=== PATIENT | female | born 1965 | race Caucasian/White ===

== ENCOUNTER → 2023-04-30 | Outpatient (CLI) | payer OTHER, MEDICARE, SELFPAY ==
--- NOTE | 2023-04-30 12:56 | US_ITS ---
STUDY: RENAL ULTRASOUND - COMPLETE REASON FOR EXAM: Female, 57 years old. NEUROGENIC BLADDER URINARY RENTENTION TECHNIQUE: Ultrasound evaluation of the kidneys was performed with real-time and static seaman-scale imaging. COMPARISON: None. FINDINGS: RIGHT KIDNEY: Normal location of the right kidney, which is normal in size. The right kidney measures 9.9 cm x 4.3 cm x 4.1 cm. There is a normal cortex of the right kidney. The renal cortex measures 1.1 cm. There is no right renal mass or cyst. There are no right renal calculi. There is no right hydronephrosis. DISTAL RIGHT URETER: There is non-visualization of the distal right ureter. There is no demonstrated right ureterovesical junction calculus. There is no demonstrated right ureteral jet. LEFT KIDNEY: Normal location of the left kidney, which is normal in size. The left kidney measures 10.1 cm x 5.4 cm x 4 cm. There is a normal cortex of the left kidney. The renal cortex measures 1.1 cm. There is no left renal mass or cyst. There are no left renal calculi. There is no left hydronephrosis. DISTAL LEFT URETER: There is non-visualization of the distal left ureter. There is no demonstrated left ureterovesical junction calculus. There is no demonstrated left ureteral jet. BLADDER: The bladder is empty due to a suprapubic catheter. US/Kidney and Bladder IMPRESSION: Normal ultrasound of the kidneys. Electronically Signed: Alden Boyce MD at 14:01 EDT ,
== END | disposition home or self-care (01) ==
LOC: US 12:55
PROVIDERS: PCP Family Medicine; Referring Provider Urology; Visit Provider Urology
DX: N31.9 Neuromuscular dysfunction of bladder, unspecified (principal); R33.9 Retention of urine, unspecified
CPT/HCPCS: 76770

== ENCOUNTER → 2024-03-15 | Outpatient (CLI) | payer OTHER, MEDICARE, SELFPAY ==
--- NOTE | 2024-03-15 16:26 | CT_ITS ---
STUDY: CT ABDOMEN AND PELVIS WITH AND WITHOUT CONTRAST REASON FOR EXAM: Female, 58 years old. DISPLACED SPC RADIATION DOSAGE (If Supplied By Facility): CTDIvol = ( 25.33 ) mGy, DLP = ( 4507.71 ) mGycm TECHNIQUE: Transaxial images were obtained from the dome of the diaphragm to the symphysis pubis without oral contrast. IV 100mL Isovue-370 was administered. Sagittal and coronal images were reconstructed. Individualized dose optimization techniques were used for this CT. COMPARISON: None. FINDINGS: The visualized lung bases are unremarkable. The visualized portions of the heart are within normal limits. Multiple hepatic cysts. There is a solitary gallstone. Normal spleen. Normal pancreas. Normal bilateral adrenal glands. Tiny (1 to 2 mm) nonobstructing stone lower pole right kidney. 2 mm nonobstructing stone upper pole left kidney. No hydronephrosis, ureteral stone, ureteral dilatation. There is a small hiatal hernia. Normal small intestine. Normal colon. There is non-visualization of the appendix. Normal abdominal aorta. Normal inferior vena cava. Normal retroperitoneum. Suprapubic catheter in the dome of the bladder. Status post bilateral tubal ligation. There is a small umbilical hernia containing fat. Mild levoscoliosis lumbar spine. CT/CT Abd/Pelvis W/WO Contrast IMPRESSION: 1. Suprapubic catheter in the dome of the bladder. 2. Bilateral small nonobstructing renal stones. 3. Cholelithiasis. 4. Multiple hepatic cysts. 5. Small hiatal hernia. Electronically Signed: Reyes Hand MD at 20:31 EDT ,
== END | disposition home or self-care (01) ==
LOC: CT 16:24
PROVIDERS: PCP Family Medicine; Referring Provider Urology; Visit Provider Urology
DX: T83.028A Displacement of other urinary catheter, initial encounter (principal)
CPT/HCPCS: 74178; Q9967

== ENCOUNTER → 2024-06-02 | Outpatient (CLI) | payer OTHER, MEDICARE, SELFPAY ==
--- NOTE | 2024-06-02 13:32 | US_ITS ---
STUDY: ULTRASOUND OF THE FEMALE PELVIS - COMPLETE REASON FOR EXAM: Female, 58 years old. ABNORMAL VAG BLEEDING LMP: Patient is postmenopausal. TECHNIQUE: Transabdominal TECHNICAL QUALITY: Limited. Suprapubic catheter is present. COMPARISON: None. FINDINGS: The uterus is anteverted and is in a midline position. The uterus measures 6.1 cm x 4.3 cm x 3.6 cm. Normal uterine cervix. The endometrium is mildly thickened and measures 4.5 mm in thickness, and is hyperechoic. There is no demonstrated endometrial mass. There is no demonstrated myometrial mass. I.U.D. - The patient does not have an I.U.D. The right ovary is non-visualized. The left ovary is non-visualized. There is no fluid in the cul-de-sac. US/Pelvic (Non ) IMPRESSION: Limited evaluation. Mildly thickened endometrium. Electronically Signed: Alden Boyce MD at 15:27 EDT ,
== END | disposition home or self-care (01) ==
PROVIDERS: PCP Family Medicine; Referring Provider Urology; Visit Provider Urology
DX: N93.9 Abnormal uterine and vaginal bleeding, unspecified (principal); Z78.0 Asymptomatic menopausal state
CPT/HCPCS: 76856

== ENCOUNTER → 2024-08-11 | Outpatient (CLI) | payer OTHER, MEDICARE, SELFPAY ==
[2024-08-17 19:07] LABS: HPV APTIMA, High Risk Negative (Negative)
== END | disposition home or self-care (01) ==
LOC: LABSPEC 14:02
PROVIDERS: PCP Family Medicine; Referring Provider Obstetrics & Gynecology; Visit Provider Obstetrics & Gynecology
DX: Z12.4 Encounter for screening for malignant neoplasm of cervix (principal)
CPT/HCPCS: 87624; 88175; G0145

== ENCOUNTER 2024-10-10 15:54 | Outpatient (CLI) | payer OTHER, MEDICARE, SELFPAY ==
--- NOTE | 2024-10-06 10:59 | EKG12_ITS ---
Test Reason : PREOP Blood Pressure : */* mmHG Vent. Rate : 72 BPM Atrial Rate : 72 BPM P-R Int : 128 ms QRS Dur : 76 ms QT Int : 398 ms P-R-T Axes : 35 -12 7 degrees QTcB Int : 435 ms Normal sinus rhythm Normal ECG Confirmed by Kenji Lyons ([id number]), videotape editor TEO CASTRO ([id number]) on 10/09/2024 9:08:43 AM Referred By: Lor Felix Confirmed By: Kenji Lyons
[2024-10-06 11:24] LABS: Hematocrit 45.6 % (37-47); Hemoglobin 14.8 g/dL (12.0-15.0); Mean Corp Hgb Conc 32.5 g/dL (32-36); Mean Corpuscular Hgb 27.3 pg (27.0-32.0); Mean Corpuscular Volume 84.1 fL (81-99); Mean Platelet Vol. 9.5 fl (6.2-12.0); Platelet Count 209 K/mm3 (150-450); RBC Distribution Width CV 13.1 % (11.6-14.6); RBC Distribution Width SD 40.2 fl (35.1-43.9); Red Blood Count 5.42 M/mm3 (4.2-5.4); White Blood Count 5.8 K/mm3 (4.4-11.0)
[2024-10-06 11:58] LABS: ALB/GLOB Ratio 1.2 RATIO (0.9-2.4); AST(SGOT) 17 U/L (15-37); Alanine Aminotransfer ALT/SGPT 33 U/L (13-56); Albumin, Serum 3.5 g/dL (3.2-5.0); Alkaline Phosphatase 101 U/L (45-117); Anion Gap 1 (5-15); BUN 13 mg/dL (7-18); BUN/Creat Ratio 16.6 RATIO (10-20); Calcium,Total 9.4 mg/dL (8.5-10.1); Chloride 107 mmol/L (98-107); Creatinine, Serum 0.78 mg/dL (0.55-1.02); EST Glomerular Filtration Rate 80 mL/min (>60); Est Glom Filt Rate - Afr Amer 97 mL/min (>60); Globulin 2.9 g/dL (2.2-4.2); Glucose 130 mg/dL (74-106); Potassium 3.9 mmol/L (3.5-5.1); Protein, Total 6.4 g/dL (6.4-8.2); Sodium Level 140 mmol/L (136-145)
[2024-10-10] VITALS (9 sets, daily range): BP systolic 151–173; BP diastolic 69–90; PULSE 59–75; RESP 16–18; TEMP 36.8–37.1; O2SAT 96–99; BMI 34.5
--- NOTE | 2024-10-10 12:34 | PCM.HP.BLA ---
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 Required: No Is patient in pain?: No Allergies No Known Allergies Allergy (Verified 10/06/24 11:17) Medications ?Medication ?Instructions ?Recorded ?Confirmed ?Type atorvastatin 20 mg tablet 20 mg PO QDAY 08/11/24 10/06/24 History baclofen 10 mg tablet 10 mg PO TID 08/11/24 10/06/24 History escitalopram oxalate 20 mg tablet 20 mg PO QDAY 08/11/24 10/06/24 History oxybutynin chloride 5 mg tablet 5 mg PO BID 08/11/24 10/06/24 History calcium carbonate 500 mg PO QDAY 10/06/24 10/06/24 History omeprazole 20 mg capsule,delayed 20 mg PO QDAY PRN 10/06/24 10/06/24 History release potassium chloride 10 mEq 10 meq PO BID 10/06/24 10/06/24 History tablet,extended release Post menopausal: No Patient : No : No PFSH Medical History Wears glasses Post-menopausal Uses wheelchair DVT (deep venous thrombosis) Multiple sclerosis Gastric reflux Non-smoker History of edema History of echocardiogram Depression Leg muscle spasm Hyperlipidemia Surgical History Suprapubic catheter S/P tubal ligation Family History Mother Thyroid disorderFather Thyroid disorder HypertensionOther Colon cancer Heart disease Social History Smoking Status: Never smoker alcohol intake: never substance use type: does not use what type of physical activity do you participate in: none seatbelt use: always do you feel safe at home: Yes additional social history: - [facility] D&C Details: ANGELIQUE HAAS is a 59 year old who presents for a preop exam about a scheduled D&C. The procedure is scheduled for persistent perimenopausal bleeding after ablation. She has severe MS and can not tolerate a pelvic exam in the office. The purpose of the D&C is to hopefully alleviate post ablation syndrome, but to also sample the endometrium. Ultrasound showed the following: FINDINGS: The uterus is anteverted and is in a midline position. The uterus measures 6.1 cm x 4.3 cm x 3.6 cm. Normal uterine cervix. The endometrium is mildly thickened and measures 4.5 mm in thickness, and is hyperechoic. There is no demonstrated endometrial mass. There is no demonstrated myometrial mass. I.U.D. - The patient does not have an I.U.D. The right ovary is non-visualized. The left ovary is non-visualized. There is no fluid in the cul-de-sac. US/Pelvic (Non ) IMPRESSION: Limited evaluation. Mildly thickened endometrium. History 2 Elective abortions Hx Para 2 Spontaneous abortions Hx # Term Pregnancies Ectopic pregnancies Hx # Pregnancies Multiple births # of living children Past Pregnancies Del. Date Name GA/Weeks Outcome Route Bth Weight Infant Gen Labor Lgth Anesthesia Del Locatn Provider FOB Unknown Radha Unknown Morteza Coding Level of Care Code Off vis,est,level 4 Diagnoses Endometrial thickening on ultrasound R93.89 History of endometrial ablation Z98.890 Postmenopausal bleeding N95.0 Multiple sclerosis G35 Assessment and Plan Assessment and Plan (1) Endometrial thickening on ultrasound: Status: Acute (2) History of endometrial ablation: Status: Acute (3) Postmenopausal bleeding: Status: Acute (4) Multiple sclerosis: Status: Chronic Plan: After discussing the patient's diagnosis and treatment plan options, patient wishes to proceed with surgical management. I have discussed with the patient the risks, benefits, and alternatives of the procedure which include but are not limited to risks of anesthesia, bleeding, infection, possible damage to bowel, bladder, or surrounding vasculature which could lead to additional surgery to evaluate any complications. Patient agrees to procedure and wishes to proceed. ACOG/uptodate references given for additional information regarding procedure. plan is for hysteroscopy dilation and curettage.
--- NOTE | 2024-10-10 13:09 | PRE.ANES_ITS ---
ASA Classification* ASA Classification ASA Classification: 3 Assessment & Plan Anesthesia* Anesthesia Assessment Anesthesia Assessment: Discussed sedation and/or anesthesia options, risks, benefits, and alternatives with patient/parents/legal guardian/POA. Questions invited. The patient/parents/legal guardian/POA seems to understand and agrees to proceed with anesthesia plan. Reviewed the physical assessment, medical history, allergy history and patient home medications list prior to surgery/procedure/anesthetic and documented any changes. Performed airway and anesthesia risk assessments. Anesthesia Type Anesthesia Type: MAC Anesthesia Focused Assessment* Temperature: 98.2 F Pulse Rate: 59 Blood Pressure: 170/86 Respiratory Rate: 18 Pulse Ox: 99 Airway Assessment Mouth opens: >3 cm Mallampati Score: II Focused Labs Anesthesia Preop lab: CBC WBC 5.8 K/mm3 (4.4-11.0) 10/06/24 10:52 RBC 5.42 M/mm3 (4.2-5.4) H 10/06/24 10:52 Hgb 14.8 g/dL (12.0-15.0) 10/06/24 10:52 Hct 45.6 % (37-47) 10/06/24 10:52 Plt Count 209 K/mm3 (150-450) 10/06/24 10:52 CHEMISTRY Potassium 3.9 mmol/L (3.5-5.1) 10/06/24 10:52 Sodium 140 mmol/L (136-145) 10/06/24 10:52 BUN 13 mg/dL (7-18) 10/06/24 10:52 Creatinine 0.78 mg/dL (0.55-1.02) 10/06/24 10:52 Glucose 130 mg/dL (74-106) H 10/06/24 10:52 COAG Pre-Assessment Diagnosis/Proposed Procedure Planned Operative Procedure(s): HYSTEROSCOPY D&C Anesthesia History Anesthesia History - import and export clerk: Anesthesia History - import and export clerk Hx Hospitalization No 10/03/24 13:07 Any Problems With Anesthesia No 10/03/24 13:07 Cholinesterase deficiency No 10/03/24 13:07 You/Your Family Experience No 10/03/24 13:07 fever (hyperthermia) with Relationship Recent Exposure to Contagious No 10/10/24 12:46 Disease Does patient have nerve No 10/03/24 13:07 stimulator Patient instructed to have device shut off --Does patient have Pacemaker No 10/10/24 12:46 or ICD? When Was Last Pacemaker Check QUESTION #4 FULL TEXT: You/Your Family Experience fever (hyperthermia) with Anesthesia Last Oral Intake Last Oral intake: Last Oral Intake NPO since 22:00 10/10/24 12:46 Meds taken in AM with sips of Yes 10/10/24 12:46 water? Meds patient instructed to see med rec 10/10/24 12:46 take am of surgery PONV PONV - import and export clerk: PONV - import and export clerk Female Yes 10/03/24 13:07 HX of Motion Sickness No 10/03/24 13:07 HX of N/V After Surgery No 10/03/24 13:07 Non-Smoker Yes 10/03/24 13:07 Duration of Surgery greater No 10/03/24 13:07 than 60 minutes Number of Risk Factors 2 10/03/24 13:07 PONV Score Moderate Risk 10/03/24 13:07 Height & Weight Height & Weight: Anesthesia: Height & Weight Height 5 ft 3 in 10/10/24 12:46 Weight: 88.451 kg 10/10/24 12:46 Body Mass Index (BMI) 34.5 10/10/24 12:46 Respiratory Assessment Respiratory Assessment - import and export clerk: Respiratory Tract Infection Hx - import and export clerk Hx Respiratory Tract Infection No 10/03/24 13:07 STOP Sleep Apnea STOP Sleep Apnea - import and export clerk: STOP Sleep Apnea - import and export clerk Hx Hypertension No 10/03/24 13:07 Hx Sleep Apnea No 10/03/24 13:07 CPAP BIPAP Do you snore loudly (louder No 10/03/24 13:07 than talking or can be heard Do you often feel tired/ No 10/03/24 13:07 fatigued/ sleepy during daytime? Has anyone observed you stop No 10/03/24 13:07 breathing during sleep? STOP Results Negative 10/03/24 13:07 QUESTION #5 FULL TEXT : Do you snore loudly (louder than talking or can be heard through closed doors)? Tobacco Use History Tobacco Use History - import and export clerk: Tobacco Use History - import and export clerk Tobacco Use Smoking Status Never smoker 10/03/24 13:07 Hx Tobacco Use No 10/03/24 13:07 Years Smoking Packs Smoked per Day Smoking Cessation Date was within the last 15 years Hx Smoking Cessation Date Hx Smoking Cessation Counseling Hematologic Medial History Hematologic Hx - import and export clerk: Hematologic Medical Hx - transition lead Hx of Blood Transfusion No 10/03/24 13:07 Hx of Transfusion in last 3 No 10/03/24 13:07 Months Date of Last Transfusion (if within last 3 months) Ever experience any problems No 10/03/24 13:07 with transfusion(s)? Specify any problems Hx of Preganancy in last 3 No 10/03/24 13:07 Months Nurse Filling Out Transfusion DSCHRIBER 10/03/24 13:07 & Questions: Date: 10/03/24 10/03/24 13:07 Time: 13:09 10/03/24 13:07 Patient unable to answer at this time (ie. confused, unrespo /Reproduction History /Reproductive History - import and export clerk: /Reproductive Hx- import and export clerk Hx Now No 10/03/24 13:07 Gestational Age (in weeks): EDC: Hx Hx Para Hx Section SAB No 10/06/24 11:18 PFSH Medical History Wears glasses Post-menopausal Uses wheelchair DVT (deep venous thrombosis) Multiple sclerosis Gastric reflux Non-smoker History of edema History of echocardiogram Depression Leg muscle spasm Hyperlipidemia Home Medications ?Medication ?Instructions ?Recorded ?Last Taken ?Type atorvastatin 20 mg tablet 20 mg PO QDAY 08/11/24 Unknown History baclofen 10 mg tablet 10 mg PO TID 08/11/24 10/10/24 08:45 History escitalopram oxalate 20 mg tablet 20 mg PO QDAY 08/11/24 Unknown History oxybutynin chloride 5 mg tablet 5 mg PO BID 08/11/24 10/10/24 08:45 History calcium carbonate 500 mg PO QDAY 10/06/24 Unknown History potassium chloride 10 mEq 10 meq PO BID 10/06/24 10/10/24 08:45 History tablet,extended release dalfampridine 10 mg 10 mg PO BID 10/10/24 12 08:45 History tablet,extended release,12 hr (Ampyra) Allergy/AdvReac Type Severity Reaction Status Date / Time No Known Allergies Allergy Verified 10/10/24 12:42 Family History Mother Thyroid disorder Father Thyroid disorder Hypertension Other Colon cancer Heart disease Surgical History Suprapubic catheter S/P tubal ligation Social History Smoking Status: Never smoker alcohol intake: never substance use type: does not use what type of physical activity do you participate in: none seatbelt use: always do you feel safe at home: Yes additional social history: - [facility] Review of Systems (Anesthesia) ROS Narrative System reviewed and no additional complaints, except as documented.
--- NOTE | 2024-10-10 14:08 | PCM.DC ---
Discharge Instructions Diet Discharge Diet: No restrictions DC O2, CPAP, BIPAP needs Additional Home O2 Discharge instructions: No Dressing / Incision Discharge Activity: Return to Normal Activity, May Shower and May Take a Tub Bath (after 1 week) May resume sexual activity in: 1-2 weeks Weight Bearing Status: Weight bearing as tolerated Lifting Restrictions: none Dressing / Incision Call your doctor if you observe: Fever of 101 or Higher, Using more than 1 pad per hour, Shortness of breath and Uncontrolled pain Follow Up Care Please Follow Up With: Lor Felix DO When: Call [phone] to schedule appointment. Test Results: Test results from this visit will be discussed in further detail at your follow-up appointment, if applicable. Discharge Plan Admission Primary Reason for Your Visit: hysteroscopy dilation and curettage Attending Provider: Lor Felix Primary Care Provider: Arnaldo Trevizo Instructions Additional Instructions / Restrictions: Take Ibuprofen (600 mg every 6 hours) or Tylenol (500 mg every 6 hours) as needed for cramping. Print Language: Citizen Of [place] Discharge Orders/Prescriptions Prescriptions: No Action atorvastatin 20 mg tablet 20 mg PO QDAY oxybutynin chloride 5 mg tablet 5 mg PO BID baclofen 10 mg tablet 10 mg PO TID escitalopram oxalate 20 mg tablet 20 mg PO QDAY potassium chloride 10 mEq tablet extended release 10 meq PO BID calcium carbonate 500 mg calcium (1,250 mg) tablet 500 mg PO QDAY dalfampridine [Ampyra] 10 mg tablet extended release 12 hr 10 mg PO BID Referrals / Follow Up: Arnaldo Treivzo MD [Primary Care Provider] - Disposition Disposition (needs filled in before D/C Order can be placed): Home, Self Care
[2024-10-10] MEDS: Lidocaine 1% (20 ml mdv) 20 ML Vial (14:48)
--- NOTE | 2024-10-10 15:02 | PCM.POST.ANE ---
Anesthesia: Postop Eval I Current Vital Signs Temperature: 98.6 F Pulse Rate: 74 Blood Pressure: 162/90 Respiratory Rate: 16 Pulse Ox: 97 Oxygen Delivery Method: Room Air Assessment Airway patent: Yes Spontaneous unlabored respirations: Yes Mental status: Asleep nausea: No Vomiting: No Anesthesia Complication: No Fluid Hydration Crystalloid volume administer (ml): 10 Total IV fluid infused: 10 Progress Note Anesthesia document: Postop Eval 1 completed: Yes
--- NOTE | 2024-10-10 15:09 | OP.PCM_ITS ---
Problems Associated Problem List Diagnoses (1) Postmenopausal bleeding: (2) Endometrial thickening on ultrasound: (3) History of endometrial ablation: Multi Select Codes Urinary/Genital Urinary/Genital CPT Codes: 57979 MOHIT Operative Report (Standard) Operative Information Date of Procedure: 10/10/24 Pre-Operative Diagnosis: postmenopausal bleeding, thickened endometrium Post-Operative Diagnosis: postmenopausal bleeding, thickened endometrium, stenotic cervix. Surgery/Procedure Performed: Attempted hysteroscopy., Pap and exam under anesthesia supervisor pumping station: No Type of Anesthesia: Local MAC RN Documented Start/Stop Times: Operation Date: 10/10/24 13:50 Case Time Into Pre-Op 10/10/24 12:14 Out of Pre-Op 10/10/24 14:15 Anesthesia Start 10/10/24 14:18 Into Room 10/10/24 14:18 Procedure Start 10/10/24 14:36 Procedure End 10/10/24 14:52 Anesthesia End 10/10/24 14:56 Out of Room 10/10/24 14:56 Procedure Start Time: 14:36 Procedure Stop Time: 14:52 Select all DRAINS/GRAFTS/IMPLANTS that apply: None Estimated Blood Loss: 10cc Specimen collected: Yes Description of specimen(s) removed: pap Description of surgery: Patient was prepped and draped in a normal sterile fashion under MAC anesthesia. A bivalve speculum was placed in the vagina due to long and narrow vaginal perales. A pap was first collected and the anterior lip of the cervix was grasped with a single-tooth tenaculum. A paracervical block was placed with 1% lidocaine. Dilation of the cervix was attempted, however resistance was met despite use of the smallest dilators and also attempt made with a long Carmen forceps device to spread the cervical os open. The fluid from the hysteroscope was used as the hysteroscope was brought to the cervical os. Hydrodissection was attempted, however only a tonawanda was created. There was then a fear of uterine perforation and the procedure was aborted after multiple attempts to dilate. All instruments were removed from the vagina and excellent hemostasis was noted. Patient was awoken and taken to recovery in stable condition. Surgical Findings: stenotic cervix. 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 Complications Complications: No Admit VTE Documentation VTE Present on Admission: No VTE Mechan Device Prophylaxis: SCD's VTE Pharm Prophylaxis ordered?: No
[2024-10-10] MEDS: oxyCODONE 5 MG Tablet PO (15:43)
--- NOTE | 2024-10-10 16:52 | POSTOPAN2_ITS ---
Anesthesia Postop Eval I Sum Postop Eval Completion status Anesthesia document: Postop Eval 1 completed: Yes Anesthesia Postop Eval I Summary Anesthesia Postop Eval I Summary: Anesthesia Postop Eval I: Assessment Summary Airway patent Yes 10/10/24 15:02 GUNNER [email or web address] Spontaneous unlabored Yes 10/10/24 15:02 GUNNER [email or web address].MARIO respirations Mental status Asleep 10/10/24 15:02 GUNNER [email or web address] nausea No 10/10/24 15:02 GUNNER MATE.[email or web address] Vomiting No 10/10/24 15:02 GUNNER MATE.PORFIRIOOBRola Anesthesia Postop Eval I: Fluid Summary Crystalloid volume administer 10 10/10/24 15:02 GUNNER [email or web address] (ml) Colloids volume administered ( ml) Blood Product volume administered (ml) Total IV fluid infused 10 10/10/24 15:02 GUNNER MATE.[email or web address] Anesthesia Postop Eval I: Summary Notes Anesthesia Complication No 10/10/24 15:02 GUNNER MATE.MARIO Anesthesia Complication Comment: Post-operative progress note Anesthesia: Postop Eval II Evaluation Mental status: Awake and Calm Pain Level: 1 nausea: No Vomiting: No Complications Anesthesia Complication: No
--- NOTE | 2024-10-10 16:52 | PCM.POSTANE2 ---
Anesthesia Postop Eval I Sum Postop Eval Completion status Anesthesia document: Postop Eval 1 completed: Yes Anesthesia Postop Eval I Summary Anesthesia Postop Eval I Summary: Anesthesia Postop Eval I: Assessment Summary Airway patent Yes 10/10/24 15:02 RFID [email or web address] Spontaneous unlabored Yes 10/10/24 15:02 RFID [email or web address] respirations Mental status Asleep 10/10/24 15:02 RFID [email or web address] nausea No 10/10/24 15:02 RFID [email or web address] Vomiting No 10/10/24 15:02 RFID [email or web address].[email or web address] Anesthesia Postop Eval I: Fluid Summary Crystalloid volume administer 10 10/10/24 15:02 RFID [email or web address] (ml) Colloids volume administered ( ml) Blood Product volume administered (ml) Total IV fluid infused 10 10/10/24 15:02 RFID [email or web address] Anesthesia Postop Eval I: Summary Notes Anesthesia Complication No 10/10/24 15:02 RFID [email or web address] Anesthesia Complication Comment: Post-operative progress note Anesthesia: Postop Eval II Evaluation Mental status: Awake and Calm Pain Level: 1 nausea: No Vomiting: No Complications Anesthesia Complication: No
[2024-10-19 10:07] LABS: HPV APTIMA, High Risk Negative (Negative)
== END 2024-10-10 17:18 | disposition home or self-care (01) ==
LOC: SDC 15:54 → AC 15:54
PROVIDERS: PCP Family Medicine; Referring Provider Obstetrics & Gynecology; Visit Provider Obstetrics & Gynecology
PROC: 0UDB8ZZ Extraction of Endometrium, Via Natural or Artificial Opening Endoscopic (ICD-10-PCS; CPT 58558; principal; 2024-10-10 13:40)
DX: N88.2 Stricture and stenosis of cervix uteri (principal); G35 Multiple sclerosis; R93.89 Abnormal findings on diagnostic imaging of other specified body structures; Z86.718 Personal history of other venous thrombosis and embolism; E78.5 Hyperlipidemia, unspecified; Z98.51 Tubal ligation status; N95.0 Postmenopausal bleeding; Z98.890 Other specified postprocedural states; K21.9 Gastro-esophageal reflux disease without esophagitis
CPT/HCPCS: 57410; 00940; 36415; 80053; 85027; 86850; 86900; 86901; 87624; 88175; 93005; G0145; J2405

== ENCOUNTER 2025-02-16 05:46 | Day surgery (SDC) | payer OTHER, MEDICARE, SELFPAY ==
[2025-02-16] VITALS (9 sets, daily range): BP systolic 112–157; BP diastolic 69–127; PULSE 71–86; RESP 16; TEMP 36.1–36.6; O2SAT 97–100; BMI 33.6
--- NOTE | 2025-02-16 06:48 | PRE.ANES_ITS ---
ASA Classification* ASA Classification ASA Classification: 3 Assessment & Plan Anesthesia* Anesthesia Assessment Anesthesia Assessment: Discussed sedation and/or anesthesia options, risks, benefits, and alternatives with patient/parents/legal guardian/POA. Questions invited. The patient/parents/legal guardian/POA seems to understand and agrees to proceed with anesthesia plan. Reviewed the physical assessment, medical history, allergy history and patient home medications list prior to surgery/procedure/anesthetic and documented any changes. Performed airway and anesthesia risk assessments. Anesthesia Type Anesthesia Type: MAC (GA bkup. patient has hx MS) Anesthesia Focused Assessment* Temperature: 97.1 F Pulse Rate: 71 Blood Pressure: 157/72 Respiratory Rate: 16 Pulse Ox: 100 Airway Assessment Mouth opens: >3 cm Mallampati Score: II Focused Labs Anesthesia Preop lab: CBC WBC 5.8 K/mm3 (4.4-11.0) 10/06/24 10:52 10/06/24 RBC 5.42 M/mm3 (4.2-5.4) H 10/06/24 10:52 10/06/24 Hgb 14.8 g/dL (12.0-15.0) 10/06/24 10:52 10/06/24 Hct 45.6 % (37-47) 10/06/24 10:52 10/06/24 Plt Count 209 K/mm3 (150-450) 10/06/24 10:52 10/06/24 CHEMISTRY Potassium 3.9 mmol/L (3.5-5.1) 10/06/24 10:52 10/06/24 Sodium 140 mmol/L (136-145) 10/06/24 10:52 10/06/24 BUN 13 mg/dL (7-18) 10/06/24 10:52 10/06/24 Creatinine 0.78 mg/dL (0.55-1.02) 10/06/24 10:52 10/06/24 Glucose 130 mg/dL (74-106) H 10/06/24 10:52 10/06/24 COAG Pre-Assessment Diagnosis/Proposed Procedure Planned Operative Procedure(s): CYSTO SUPRAPUBIC CATH Anesthesia History 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 When Was Last Pacemaker Check QUESTION #4 FULL TEXT: You/Your Family Experience fever (hyperthermia) with Anesthesia Last Oral Intake Last Oral intake: Last Oral Intake NPO since 00:00 02/16/25 06:22 Meds taken in AM with sips of No 02/16/25 06:22 water? Meds patient instructed to take am of surgery PONV PONV - brush loader and handle attacher: PONV - brush loader and handle attacher Female Yes 02/13/25 15:15 HX of Motion Sickness No 02/13/25 15:15 HX of N/V After Surgery No 02/13/25 15:15 Non-Smoker Yes 02/13/25 15:15 Duration of Surgery greater Yes 02/13/25 15:15 than 60 minutes Number of Risk Factors 3 02/13/25 15:15 PONV Score Moderate Risk 02/13/25 15:15 Height & Weight Height & Weight: Anesthesia: Height & Weight Height 5 ft 3 in 02/16/25 06:22 Weight: 86.183 kg 02/16/25 06:22 Body Mass Index (BMI) 33.6 02/16/25 06:22 Respiratory Assessment Respiratory Assessment - brush loader and handle attacher: Respiratory Tract Infection Hx - brush loader and handle attacher Hx Respiratory Tract Infection No 02/13/25 15:15 STOP Sleep Apnea STOP Sleep Apnea - brush loader and handle attacher: STOP Sleep Apnea - brush loader and handle attacher Hx Hypertension Yes: NO MEDS FOR 4 YRS 02/13/25 15:15 Hx Sleep Apnea No 02/13/25 15:15 CPAP BIPAP Do you snore loudly (louder Yes 02/13/25 15:15 than talking or can be heard Do you often feel tired/ Yes 02/13/25 15:15 fatigued/ sleepy during daytime? Has anyone observed you stop No 02/13/25 15:15 breathing during sleep? STOP Results Positive 02/13/25 15:15 QUESTION #5 FULL TEXT : Do you snore loudly (louder than talking or can be heard through closed doors)? 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 Specify any problems Hx of Preganancy in last 3 No 02/13/25 15:15 Months Nurse Filling Out Transfusion DSCHRIBER 02/13/25 15:15 & Questions: Date: 02/13/25 02/13/25 15:15 Time: 15:17 02/13/25 15:15 Patient unable to answer at this time (ie. confused, unrespo /Reproduction History /Reproductive History - brush loader and handle attacher: /Reproductive Hx- brush loader and handle attacher Hx Now No 02/13/25 15:15 Gestational Age (in weeks): EDC: Hx Hx Para Hx Section SAB No 02/13/25 15:15 Active Medications Active Medications: Current Medications Generic Name Dose Route Start Last Admin Trade Name Freq PRN Reason Stop Dose Admin Cefazolin Sodium 2 gm/ N/A 20 mls @ 400 mls/hr 02/16/25 07:30 IV 02/16/25 07:32 INTRAOP ONE [facility] Medical History Indwelling urethral catheter present Wears glasses Post-menopausal Uses wheelchair DVT (deep venous thrombosis) Multiple sclerosis Gastric reflux Non-smoker History of edema History of echocardiogram Depression Leg muscle spasm Hyperlipidemia Home Medications ?Medication ?Instructions ?Recorded ?Last Taken ?Type atorvastatin 20 mg tablet 20 mg PO QDAY 08/11/2402/15 History baclofen 10 mg tablet 10 mg PO TID 08/11/24 History escitalopram oxalate 20 mg tablet 20 mg PO QDAY 02/15/25 History oxybutynin chloride 5 mg tablet 10 mg PO BID 08/11/24 02/15/25 History calcium carbonate 500 mg PO QDAY 10/06/2401/30 History potassium chloride 10 mEq 10 meq PO BID 10/06/2402/15 History tablet,extended release dalfampridine 10 mg 10 mg PO BID 10/10/24 History tablet,extended release,12 hr (Ampyra) Allergy/AdvReac Type Severity Reaction Status Date / Time No Known Allergies Allergy Verified 02/16/25 06:21 Family History Mother Thyroid disorder Father Thyroid disorder Hypertension Other Colon cancer Heart disease Surgical History S/P D&C (status post dilation and curettage) Suprapubic catheter S/P tubal ligation Social History Smoking Status: Never smoker alcohol intake: never substance use type: does not use what type of physical activity do you participate in: none seatbelt use: always do you feel safe at home: Yes additional social history: Tae Morales Review of Systems (Anesthesia) ROS Narrative System reviewed and no additional complaints, except as documented.
[2025-02-16 07:10] LABS: Anion Gap 11 (5-15); BUN 13 mg/dL (4-19); BUN/Creat Ratio 15.4 RATIO (10-20); Calcium,Total 9.5 mg/dL (7.6-11.0); Carbon Dioxide 23.7 mmol/L (21.0-32.0); Chloride 103 mmol/L (98-108); Creatinine, Serum 0.82 mg/dL (0.70-1.20); EST Glomerular Filtration Rate 83 (>60); Estimated Creatinine Clearance 77.81 ml/min (50-250); Glucose 108 mg/dL (70-99); Potassium 3.9 mmol/L (3.3-5.1); Sodium Level 138 mmol/L (133-145)
[2025-02-16] MEDS: Cefazolin 2 GM in Syringe IV (07:29)
[2025-02-16] MEDS: Lidocaine Jelly 2% 20 ML Syringe (URO-JET) 1 APPLIC (07:48)
--- NOTE | 2025-02-16 08:31 | DCINST_ITS ---
Discharge Instructions Diet Discharge Diet: No restrictions Activity Discharge Activity: Return to Normal Activity Dressing / Incision Call your doctor if your incision/area has: Continuous Slow Oozing, Sudden Increased Bleeding, Increased Pain/ Swelling and Foul Smelling Discharge Call your doctor if you observe: Fever of 101 or Higher, Inability to urinate and Inability to have a bowel movement Additional Dressing/Incision Instructions:: routine suprapubic tube care Follow Up Care Please Follow Up With: Bryanna Boo MD When: The office will call for arrangements. Test Results: Test results from this visit will be discussed in further detail at your follow-up appointment, if applicable. Discharge Plan Admission Attending Provider: Bryanna Boo Primary Care Provider: Arnaldo Trevizo Instructions Print Language: Estonian Discharge Orders/Prescriptions Prescriptions: New cephalexin 500 mg capsule 500 mg PO Q12 3 Days Qty: 6 0RF Continued atorvastatin 20 mg tablet 20 mg PO QDAY oxybutynin chloride 5 mg tablet 10 mg PO BID baclofen 10 mg tablet 10 mg PO TID escitalopram oxalate 20 mg tablet 20 mg PO QDAY potassium chloride 10 mEq tablet extended release 10 meq PO BID calcium carbonate 500 mg calcium (1,250 mg) tablet 500 mg PO QDAY dalfampridine [Ampyra] 10 mg tablet extended release 12 hr 10 mg PO BID Referrals / Follow Up: Arnaldo Trevizo MD [Primary Care Provider] - Disposition Disposition (needs filled in before D/C Order can be placed): Home, Self Care
--- NOTE | 2025-02-16 08:53 | OP.PCM_ITS ---
Operative Report (Standard) Operative Information Date of Procedure: 02/16/25 Pre-Operative Diagnosis: Urinary retention, retained suprapubic catheter Post-Operative Diagnosis: Same Surgery/Procedure Performed: Cystoscopy, complex suprapubic tube change bioinformaticist: No Type of Anesthesia: MAC RN Documented Start/Stop Times: Operation Date: 02/16/25 07:30 Case Time Into Pre-Op 02/16/25 05:58 Out of Pre-Op 02/16/25 07:26 Anesthesia Start 02/16/25 07:29 Into Room 02/16/25 07:29 Procedure Start 02/16/25 07:44 Procedure End 02/16/25 07:55 Anesthesia End 02/16/25 08:01 Out of Room 02/16/25 08:01 Into Recovery 02/16/25 08:03 Into Phase II Recovery 02/16/25 08:20 Out of Recovery 02/16/25 08:20 Procedure Start Time: 07:44 Procedure Stop Time: 07:55 Select all DRAINS/GRAFTS/IMPLANTS that apply: Drains Drain details: 16 Portuguese silicone suprapubic Fabian catheter Estimated Blood Loss: 5cc Specimen collected: No Description of surgery: Patient is a 59-year-old female with longstanding neurogenic bladder and urinary retention with a suprapubic catheter. She has not been doing her acetic acid flushes at home and her suprapubic catheter clogged. Her attempted to change the tube and was unable to. They presented to the emergency room and were unable to have a change there and I attempted also in the office. She now presents for management under anesthesia. Informed consent was obtained. She was taken to the operating room and placed in a supine position on the operating room table. Anesthesia monitored the head, neck, airway, IV access and vital signs throughout the case. Once anesthesia was appropriately administered she was placed into dorsolithotomy position was prepped and draped in usual sterile fashion. A cystoscope was inserted through the urethra under direct visualization into the urinary bladder. The Fabian balloon was visualized. There is no evidence of tissue mass or abnormality. There was significant amount of mucus and debris present. At this time the suprapubic tube was cut and 10 cc of fluid drained from the balloon port. I was still unable to remove the catheter. I placed a guidewire through the balloon port to ensure that it emptied completely and then visualized with the cystoscope. At this time the balloon was in fact empty however, there was a significant amount of encrustation at the catheter site that would not allow the suprapubic tube to be removed from the insertion site. Using a grasping forcep, I pulled the Fabian tip through the urethra where I removed the entire thing. The suprapubic tract was filled with lidocaine jelly and a new 16 Portuguese silicone catheter was inserted and the balloon was inflated with 10 cc. I did attempt to place a 18 Portuguese catheter, this would not go through the tract easily. The cystoscope was used to confirm inflation of the new balloon and placement of the catheter. The cystoscope was then removed. The patient was then awakened and taken to the recovery room in good condition. There were no complications during this procedure. Surgical Findings: Encrustation of catheter tip and balloon port Complications Complications: No Admit VTE Documentation VTE Present on Admission: Yes VTE Mechan Device Prophylaxis: SCD's VTE Pharm Prophylaxis ordered?: No Reason prophylaxis not ordered: Procedure Not Indicated
--- NOTE | 2025-02-16 09:06 | PCM.POST.ANE ---
Anesthesia: Postop Eval I Current Vital Signs Temperature: 97 F Pulse Rate: 82 Blood Pressure: 149/94 Respiratory Rate: 16 Pulse Ox: 98 Oxygen Delivery Method: Room Air Assessment Airway patent: Yes Spontaneous unlabored respirations: Yes Mental status: Awake nausea: No Vomiting: No Anesthesia Complication: No Fluid Hydration Crystalloid volume administer (ml): 200 Total IV fluid infused: 100 Progress Note Anesthesia document: Postop Eval 1 completed: Yes
--- NOTE | 2025-02-16 09:09 | PCM.POSTANE2 ---
Anesthesia Postop Eval I Sum Postop Eval Completion status Anesthesia document: Postop Eval 1 completed: Yes Anesthesia Postop Eval I Summary Anesthesia Postop Eval I Summary: Anesthesia Postop Eval I: Assessment Summary Airway patent Yes 02/16/25 09:07 Spontaneous unlabored Yes 02/16/25 09:07 respirations Mental status Awake 02/16/25 09:07 nausea No 02/16/25 09:07 Vomiting No 02/16/25 09:07 Anesthesia Postop Eval I: Fluid Summary Crystalloid volume administer 200 02/16/25 09:07 (ml) Colloids volume administered ( ml) Blood Product volume administered (ml) Total IV fluid infused 100 02/16/25 09:07 Anesthesia Postop Eval I: Summary Notes Anesthesia Complication No 02/16/25 09:07 Anesthesia Complication Comment: Post-operative progress note Anesthesia: Postop Eval II Evaluation Mental status: Awake Pain Level: 0 nausea: No Vomiting: No
--- NOTE | 2025-02-16 09:35 | PCM.POST.ANE ---
Anesthesia: Postop Eval I Current Vital Signs Temperature: 97 F Pulse Rate: 82 Blood Pressure: 149/94 Respiratory Rate: 16 Pulse Ox: 98 Oxygen Delivery Method: Room Air Assessment Airway patent: Yes Spontaneous unlabored respirations: Yes Mental status: Awake and Calm nausea: No Vomiting: No Anesthesia Complication: No Fluid Hydration Crystalloid volume administer (ml): 20 Total IV fluid infused: 20 Progress Note Anesthesia document: Postop Eval 1 completed: Yes
== END 2025-02-16 09:07 | disposition home or self-care (01) ==
LOC: SDC 05:47 → AC 05:49
PROVIDERS: PCP Family Medicine; Referring Provider Urology; Visit Provider Urology
PROC: 0T9B40Z Drainage of Bladder with Drainage Device, Percutaneous Endoscopic Approach (ICD-10-PCS; CPT 52005; principal; 2025-02-16 07:20)
DX: R33.9 Retention of urine, unspecified (principal); G35 Multiple sclerosis; N31.9 Neuromuscular dysfunction of bladder, unspecified; T83.091A Other mechanical complication of indwelling urethral catheter, initial encounter; E78.5 Hyperlipidemia, unspecified; I10 Essential (primary) hypertension; K21.9 Gastro-esophageal reflux disease without esophagitis; Z86.73 Personal history of transient ischemic attack (TIA), and cerebral infarction without residual deficits; Z86.718 Personal history of other venous thrombosis and embolism; Z98.51 Tubal ligation status; N39.0 Urinary tract infection, site not specified; N39.41 Urge incontinence
CPT/HCPCS: 51710; 52000; 00910; 80048; A4216; C1769; J2405

== ENCOUNTER → 2025-04-13 | Outpatient (CLI) | payer OTHER, MEDICARE, SELFPAY | END | disposition home or self-care (01) | LOC: LABSPEC 17:02 | PROVIDERS: PCP Family Medicine; Referring Provider Obstetrics & Gynecology; Visit Provider Obstetrics & Gynecology | DX: N94.10 Unspecified dyspareunia (principal) | CPT/HCPCS: 87070; 87205 ==

== ENCOUNTER → 2025-06-04 | Outpatient (CLI) | payer OTHER, MEDICARE, SELFPAY ==
--- NOTE | 2025-06-04 12:39 | US_ITS ---
PROCEDURE: PELVIC W/ TRANSVAGINAL REASON FOR EXAM: THICKENED ENDOMETRIUM TECHNIQUE: PELVIC W/ TRANSVAGINAL COMPARISON: Prior study dated June 02, 2024. FINDINGS: Measurements: Uterus: 6.5 cm x 4.8 cm x 3.4 cm with a volume of 55.72 mL Endometrial Thickness: 4.8 mm. It is hyperechoic. Right Ovary: Nonvisualized. Left Ovary: Nonvisualized. TRANSABDOMINAL: Uterus: Findings suggestive of a 6 mm x 6 mm x 5 mm uterine fibroid. Endometrium: Unremarkable. Right ovary: Not visualized. Left ovary: Not visualized. Other: No large pelvic mass identified. Transvaginal sonography was performed to better visualize the endometrium. TRANSVAGINAL: Uterus: Anteverted. Subcentimeter uterine fibroid. Endometrium: Normal echotexture. Right ovary: Not visualized. Left ovary: Not visualized. Other adnexal findings: None. Cul-de-sac: No free intraperitoneal fluid identified. Tenderness: No tenderness US/Pelvic w/ Transvaginal IMPRESSION: Subcentimeter uterine fibroid. Reading Location: [id number]
== END | disposition home or self-care (01) ==
LOC: US 12:35
PROVIDERS: PCP Family Medicine; Referring Provider Obstetrics & Gynecology; Visit Provider Obstetrics & Gynecology
DX: R93.89 Abnormal findings on diagnostic imaging of other specified body structures (principal)
CPT/HCPCS: 76830; 76856